=== PATIENT | female | born 1985 | race Caucasian/White ===

== ENCOUNTER 2019-11-15 18:54 | Emergency (ER) | payer OTHER ==
[~2019-11-15] VITALS: Ht 160 cm; Wt 68.0 kg
--- NOTE | 2019-11-15 19:16 | PHYS DOC ---
Adult General Chief Complaint Chief Complaint: SUICDAL IDEATION HPI HPI 34-year-old female presents to the emergency department with complaints of suicidal ideation. Patient used a razor blade she has approximately 4 supe rficial lacerations to the left wrist. She as well describes 3 beers, 3 shots of vodka. Unknown last tetanus shot. She denies any homicidal, audio or visual hallucinations. Patient states she has a history of chronic depression, she has cut herself multiple times in the past. She states she has daily thoughts of hurting herself. Patient states today she had a disagreement with her boyfriend which triggered the cutting. Review of Systems Review of Systems Constitutional: Denies fever or chills [] Eyes: Denies change in visual acuity, redness, or eye pain [] HENT: Denies nasal congestion or sore throat [] Respiratory: Denies cough or shortness of breath [] Cardiovascular: No additional information not addressed in HPI [] GI: Denies abdominal pain, nausea, vomiting, bloody stools or diarrhea [] Musculoskeletal: Denies back pain or joint pain [] Integument: superficial lacerations appreciated to left wrist Neurologic: Denies headache, focal weakness or sensory changes [] All other systems were reviewed and found to be within normal limits, except as documented in this note. Current Medications Current Medications Current Medications Medications (Trade) Dose Ordered Sig/Billie Start Time Stop Time Status Last Admin Dose Admin Diphtheria/ Tetanus/Acell Pertussis (Boostrix) 0.5 ml ONCE ONCE 11/15/19 21:00 11/15/19 21:01 DC 11/15/19 21:27 0.5 ML Allergies Allergies Allergies Coded Allergies Type Severity Reaction Last Updated Verified No Known Drug Allergies 11/15/19 No Physical Exam Physical Exam Constitutional: Well developed, well nourished, non-toxic appearing[] HENT: Normocephalic, atraumatic, bilateral external ears normal, oropharynx moist, no oral exudates, nose normal. [] Eyes: PERRLA, EOMI, conjunctiva normal, no discharge. [] Neck: Normal range of motion, no tenderness, supple, no stridor. [] Cardiovascular:Heart rate regular rhythm, no murmur [] Lungs & Thorax: Bilateral breath sounds clear to auscultation [] Abdomen: Bowel sounds normal, soft, no tenderness, no masses, no pulsatile masses. [] Skin: Warm, dry, no rash, wrist with 4 superficial lacerations appreciated Back: No tenderness, no CVA tenderness. [] Extremities: No tenderness, no edema. [] Neurologic: Alert and oriented X 3, no focal deficits noted. [] Psychologic: Affect normal, judgement normal, mood normal. [] Current Patient Data Vital Signs Vital Signs Date Time Temp Pulse Resp B/P (MAP) Pulse Ox O2 Delivery O2 Flow Rate FiO2 11/15/19 20:29 80 102/63 (76) 100 Room Air 11/15/19 19:00 98.3 20 98.3 Lab Values Laboratory Tests Test 11/15/19 19:10 11/15/19 19:59 White Blood Count 8.0 x10^3/uL (4.0-11.0) Red Blood Count 4.62 x10^6/uL (3.50-5.40) Hemoglobin 15.3 g/dL (12.0-15.5) Hematocrit 45.3 % (36.0-47.0) Mean Corpuscular Volume 98 fL (79-100) Mean Corpuscular Hemoglobin 33 pg (25-35) Mean Corpuscular Hemoglobin Concent 34 g/dL (31-37) Red Cell Distribution Width 13.2 % (11.5-14.5) Platelet Count 337 x10^3/uL (140-400) Neutrophils (%) (Auto) 57 % (31-73) Lymphocytes (%) (Auto) 33 % (24-48) Monocytes (%) (Auto) 8 % (0-9) Eosinophils (%) (Auto) 1 % (0-3) Basophils (%) (Auto) 1 % (0-3) Neutrophils # (Auto) 4.5 x10^3/uL (1.8-7.7) Lymphocytes # (Auto) 2.7 x10^3/uL (1.0-4.8) Monocytes # (Auto) 0.7 x10^3/uL (0.0-1.1) Eosinophils # (Auto) 0.1 x10^3/uL (0.0-0.7) Basophils # (Auto) 0.1 x10^3/uL (0.0-0.2) Sodium Level 142 mmol/L (136-145) Potassium Level 3.5 mmol/L (3.5-5.1) Chloride Level 105 mmol/L (98-107) Carbon Dioxide Level 25 mmol/L (21-32) Anion Gap 12 (6-14) Blood Urea Nitrogen 8 mg/dL (7-20) Creatinine 0.6 mg/dL (0.6-1.0) Estimated GFR (Cockcroft-Gault) 113.1 BUN/Creatinine Ratio 13 (6-20) Glucose Level 96 mg/dL (70-99) Calcium Level 9.3 mg/dL (8.5-10.1) Total Bilirubin 0.3 mg/dL (0.2-1.0) Aspartate Amino Transferase (AST) 64 U/L (15-37) H Alanine Aminotransferase (ALT) 65 U/L (14-59) H Alkaline Phosphatase 67 U/L (46-116) Total Protein 7.1 g/dL (6.4-8.2) Albumin 4.2 g/dL (3.4-5.0) Albumin/Globulin Ratio 1.4 (1.0-1.7) Salicylates Level 4.1 mg/dL (2.8-20.0) Salicylate Last Dose Date Salicylate Last Dose Time Acetaminophen Level < 2 mcg/ml (10-30) L Acetaminophen Last Dose Date Acetaminophen Last Dose Time Ethyl Alcohol Level 285 mg/dL (0-10) H Urine Collection Type Unknown Urine Color Yellow Urine Clarity Clear Urine pH 7.0 Urine Specific [place] <=1.005 Urine Protein Negative mg/dL (NEG-TRACE) Urine Glucose (UA) Negative mg/dL (NEG) Urine Ketones (Stick) Negative mg/dL (NEG) Urine Blood Negative (NEG) Urine Nitrite Negative (NEG) Urine Bilirubin Negative (NEG) Urine Urobilinogen Dipstick 0.2 mg/dL (0.2 mg/dL) Urine Leukocyte Esterase Trace (NEG) Urine RBC 0 /HPF (0-2) Urine WBC 5-10 /HPF (0-4) Urine Squamous Epithelial Cells Mod /LPF Urine Bacteria Moderate /HPF (0-FEW) Urine Test Negative (NEG) Laboratory Tests 11/15/19 19:10 Laboratory Tests 11/15/19 19:10 EKG EKG [] Radiology/Procedures Radiology/Procedures [] Course & Med Decision Making Course & Med Decision Making Pertinent Labs and Imaging studies reviewed. (See chart for details) []34-year-old female presents to the emergency department with complaints of suicidal ideation. Patient used a razor blade she has approximately 4 superficial lacerations to the left wrist. She as well describes 3 beers, 3 shots of vodka. Unknown last tetanus shot. She denies any homicidal, audio or visual hallucinations. Patient states she has a history of chronic depression, she has cut herself multiple times in the past. She states she has daily thoughts of hurting herself. Patient states today she had a disagreement with her boyfriend which triggered the cutting. Labs reviewed PAT assessment with plans for placement, will await accepting facility Steri-Strips applied to left wrist, area cleansed and irrigated prior to Boostrix provided Patient is medically clear Dr. Villegas accepted patient at ([facility]) Dr. Gurrola is the attending physician ([facility]) Thomas Disclaimer Thomas Disclaimer This electronic medical record was generated, in whole or in part, using a voice recognition dictation system. Departure Departure Impression: Primary Impression: Suicidal ideation Additional Impressions: Superficial laceration Depression Disposition: 05 TRANSFER OTHER Condition: STABLE Referrals: NON,STAFF (PCP) Patient Instructions: Sterile Tape Wound Closure, Suicidal Feelings, How to Help Yourself Additional Instructions: Recommend follow up with PCP 3 - 5 days Return to the ER with worsening symptoms, intractable pain, fever, altered mental status Tylenol/Motrin as needed for pain Boostrix (tetanus) provided in ER Problem Qualifiers Additional Impressions: Depression Depression Type: unspecified Qualified Codes: F32.9 - Major depressive disorder, single episode, unspecified JAKE HOANG MD Nov 15, 2019 19:16
[2019-11-15 19:19] LABS: BASO # 0.1 x10^3/uL (0.0-0.2); BASO % 1 % (0-3); EOS # 0.1 x10^3/uL (0.0-0.7); EOS % 1 % (0-3); HEMATOCRIT 45.3 % (36.0-47.0); HEMOGLOBIN 15.3 g/dL (12.0-15.5); LYMPH # 2.7 x10^3/uL (1.0-4.8); LYMPH % 33 % (24-48); MEAN CORPUSCULAR HEMOGLOBIN 33 pg (25-35); MEAN CORPUSCULAR HGB CONC 34 g/dL (31-37); MEAN CORPUSCULAR VOLUME 98 fL (79-100); MONO # 0.7 x10^3/uL (0.0-1.1); MONO % 8 % (0-9); NEUT # 4.5 x10^3/uL (1.8-7.7); NEUT % 57 % (31-73); PLATELET COUNT 337 x10^3/uL (140-400); RED BLOOD COUNT 4.62 x10^6/uL (3.50-5.40); RED CELL DISTRIBUTION WIDTH 13.2 % (11.5-14.5)
[2019-11-15 19:27] LABS: CALCIUM 9.3 mg/dL (8.5-10.1); CREATININE 0.6 mg/dL (0.6-1.0); GFR 113.1; POTASSIUM 3.5 mmol/L (3.5-5.1)
[2019-11-15 19:31] LABS: ACETAMIN < 2 mcg/ml (10-30); ETHANOL 285 mg/dL (0-10); SALIC 4.1 mg/dL (2.8-20.0)
[2019-11-15 19:33] LABS: ALBUMIN 4.2 g/dL (3.4-5.0); ALBUMIN/GLOBULIN RATIO 1.4 (1.0-1.7); TOTAL BILIRUBIN 0.3 mg/dL (0.2-1.0); TOTAL PROTEIN 7.1 g/dL (6.4-8.2)
[2019-11-15 20:08] LABS: BILIRUBIN,URINE NEGATIVE (NEG); CLARITY,URINE CLEAR; COLOR,URINE YELLOW; NITRITE,URINE NEGATIVE (NEG); PROTEIN,URINE NEGATIVE (NEG-TRACE); UROBILINOGEN,URINE 0.2 mg/dL (0.2 mg/dL)
[2019-11-15 20:25] LABS: BACTERIA,URINE MODERATE /HPF (0-FEW); RBC,URINE 0 /HPF (0-2); SQUAMOUS EPITHELIAL CELL,UR MOD /LPF
[2019-11-15] MEDS ORDERED: DIPHTH,PERTUSS(ACELL),TET TOX 0.5 ML DISP.SYRIN. VAX IM ONE (21:00)
[2019-11-15 22:17] LABS: U PREG PATIENT NEGATIVE (NEG)
[2019-11-15 23:29] VITALS: BP 103/62
== END 2019-11-16 00:15 | disposition short-term general hospital (02) ==
LOC: ER 18:54
DX: S61.512A Laceration without foreign body of left wrist, initial encounter (principal); R45.851 Suicidal ideations; F32.9 Major depressive disorder, single episode, unspecified; X78.8XXA Intentional self-harm by other sharp object, initial encounter; Y93.89 Activity, other specified; Y92.89 Other specified places as the place of occurrence of the external cause; Y99.8 Other external cause status
CPT/HCPCS: 36415; 80053; 80329; 81001; 81025; 85025; 87086; 90471; 90715; 99285; G0480